=== PATIENT | male | born 1970 | race Hispanic/Latino ===

== ENCOUNTER 2017-07-29 12:00 | Observation (INO) | payer OTHER ==
[~2017-07-29] VITALS: Ht 167.6 cm; Wt 119.8 kg
[2017-07-29 08:53] VITALS: BP 123/81
[2017-07-29 10:20] LABS: BASOPHILS % (AUTO) 0.5 % (0.0-5.0); EOSINOPHILS % (AUTO) 1.5 % (0.0-8.0); LYMPHOCYTES % (AUTO) 30.8 % (21.0-51.0); MEAN CORPUSCULAR HEMOGLOBIN 30.3 pg (27.0-33.0); MEAN CORPUSCULAR HGB CONC 33.8 g/dL (32.0-36.0); MEAN CORPUSCULAR VOLUME 89.8 fL (79-99); MONOCYTES % (AUTO) 6.5 % (3.0-13.0); NEUTROPHILS % (AUTO) 60.7 % (40.0-77.0); PLATELET COUNT (AUTO) 301 K/uL (130-400); RED BLOOD CELL COUNT(AUTO) 4.68 MIL/uL (4.50-6.20); RED CELL DISTRIBUTION WIDTH 14.8 % (11.0-15.5); WHITE BLOOD COUNT (AUTO) 9.6 K/uL (4.8-10.8)
[2017-07-29 10:27] LABS: POTASSIUM 4.8 mmol/L (3.5-5.1)
[~2017-07-29 12:00] MED LIST: BACL10TA PO; GABA-531 PO; LISI10TA7 PO; MELO-106 PO; TYL3 PO
[2017-08-01] VITALS (21 sets, daily range): BP systolic 80–152; BP diastolic 35–89
[2017-08-01] MEDS: CEFAZOLIN SODIUM 1 GM VIAL IVP SCH ×2 (05:00→09:00)
[2017-08-01] MEDS ORDERED: LACTATED RINGERS 1000ML 1,000 ML IV ONE (06:18)
[2017-08-01] MEDS ORDERED: DEXAMETHASONE SOD PHOSPHATE 10MG/ML 1ML VIAL ONE ×2 (07:45→09:33)
[2017-08-01] MEDS ORDERED: LIDOCAINE PF 2% 5ML ABBOJECT ONE (07:45)
[2017-08-01] MEDS ORDERED: MIDAZOLAM HCL 1 MG/ML 2ML VIAL ONE (07:45)
[2017-08-01] MEDS ORDERED: PROPOFOL 10 MG/ML 20ML VIAL IV ONE (07:45)
[2017-08-01] MEDS ORDERED: NEOSTIGMINE 5MG/5ML SYR IV ONE ×2 (07:45→09:33)
[2017-08-01] MEDS ORDERED: GLYCOPYRROLATE 0.2 MG/ML 5 ML VIAL ONE (07:45)
[2017-08-01] MEDS ORDERED: FENTANYL CITRATE PF 50 MCG/1 ML 2ML VIAL ONE ×4 (07:46→11:45)
[2017-08-01] MEDS ORDERED: LIDOCAINE HCL 2% JELLY 5 ML ONE (07:56)
[2017-08-01] MEDS ORDERED: BUPIVACAINE/PF 0.25% 30ML VIAL IJ ONE (08:22)
[2017-08-01] MEDS ORDERED: DURAMORPH PF1 MG/ML 10ML AMP IV ONE (08:22)
[2017-08-01] MEDS ORDERED: EPINEPHRINE 1 MG/ML AMPULE ONE (08:22)
[2017-08-01] MEDS ORDERED: BACITRACIN 50,000 UNIT VIAL ONE (08:22)
[2017-08-01] MEDS ORDERED: THROMBIN-JMI 20000 UNIT KIT TP ONE (08:23)
[2017-08-01] MEDS ORDERED: SODIUM CHLORIDE 0.9% 10 ML VIAL ONE (09:24)
[2017-08-01] MEDS ORDERED: EPHEDRINE SULFATE 50 MG/ML AMPULE ONE (09:25)
[2017-08-01] MEDS ORDERED: METOCLOPRAMIDE 10 MG/2 ML VIAL ONE (09:33)
[2017-08-01] MEDS ORDERED: ROCURONIUM BROMIDE 10MG/1ML 5ML VL ONE (09:33)
[2017-08-01] MEDS ORDERED: PHENYLEPHRINE HCL 10 MG/ML 1ML VIAL IV ONE (09:33)
[2017-08-01] MEDS ORDERED: ONDANSETRON HCL MDV 20ML 2 MG/ML VIAL ONE (12:03)
[2017-08-01] MEDS ORDERED: SODIUM CHLORIDE 0.9% 10 ML VIAL IVP PRN (12:30)
[2017-08-01] MEDS ORDERED: CEFAZOLIN 3GM /D5W 100ML 100 ML IV SCH (12:30)
[2017-08-01] MEDS: DEXAMETHASONE SOD PHOSPHATE 4 MG/ML 1ML VIAL IVP SCH ×3 (12:30→23:18)
[2017-08-01] MEDS ORDERED: PROMETHAZINE HCL 25 MG/ML 1ML AMPULE IM PRN (12:30)
[2017-08-01] MEDS ORDERED: ACETAMINOPHEN-CODEINE 300/30MG TAB PO PRN (12:30)
[2017-08-01] MEDS ORDERED: MORPHINE SULFATE 2 MG/ML 1ML SYG IVP PRN (12:30)
[2017-08-01] MEDS ORDERED: CEFAZOLIN SODIUM 1 GM VIAL IVP SCH (12:45)
[2017-08-01] MEDS ORDERED: MORPHINE SULFATE 4 MG/1ML SYG ONE (14:14)
[2017-08-01] MEDS: GABAPENTIN 300 MG CAPSULE PO SCH ×3 (14:27→20:25)
[2017-08-01] MEDS: LACTATED RINGERS 1000ML 1,000 ML IV SCH (14:27)
[2017-08-01] MEDS ORDERED: DiphenhydrAMINE HCL 50 MG/ML VIAL ONE (14:39)
[2017-08-01] MEDS ORDERED: DiphenhydrAMINE HCL 50 MG/ML VIAL IV SCH (14:45)
[2017-08-01] MEDS: CEFAZOLIN 3GM /D5W 100ML 100 ML IV SCH ×2 (16:50→23:18)
[2017-08-01] MEDS: HYDROCODONE/ACETAMINOPHEN 5/325 MG TAB PO PRN (16:54)
[2017-08-01] MEDS: MELOXICAM 7.5 MG TABLET PO SCH (20:25)
[2017-08-01] MEDS ORDERED: BACLOFEN 10 MG TABLET PO SCH (21:00)
[2017-08-02] VITALS: BP 138/78
[2017-08-02] MEDS: LACTATED RINGERS 1000ML 1,000 ML IV SCH (01:47)
[2017-08-02] MEDS: HYDROCODONE/ACETAMINOPHEN 5/325 MG TAB PO PRN (03:35)
[2017-08-02 04:00] VITALS: BP 146/72
[2017-08-02] MEDS: DEXAMETHASONE SOD PHOSPHATE 4 MG/ML 1ML VIAL IVP SCH (05:01)
[2017-08-02 07:34] VITALS: BP 150/96
[2017-08-02] MEDS: GABAPENTIN 300 MG CAPSULE PO SCH (07:55)
[2017-08-02] MEDS: CEFAZOLIN 3GM /D5W 100ML 100 ML IV SCH (07:56)
[2017-08-02] MEDS: MELOXICAM 7.5 MG TABLET PO SCH (08:01)
[2017-08-02] MEDS ORDERED: LISINOPRIL 10 MG TABLET PO SCH (09:00)
== END 2017-08-02 09:45 | disposition home or self-care (01) ==
LOC: EDSTATUS 12:00 → DAHIP 08-01 05:55 → 4AH 08-01 13:32
PROVIDERS: ADMIT Neurological Surgery; ATTEND Neurological Surgery
DX: M51.06 Intervertebral disc disorders with myelopathy, lumbar region (principal); M48.061 Spinal stenosis, lumbar region without neurogenic claudication; G83.4 Cauda equina syndrome; Z79.899 Other long term (current) drug therapy; M25.78 Osteophyte, vertebrae
CPT/HCPCS: 36415; 63047; 63048; 72020; 80051; 85025; 96365; 96366; 96375; 96376 ×2; A4218; A4344; A6219; G0378 ×29; J0171; J0690 ×4; J1100 ×5; J1200; J2001; J2250; J2270; J2274; J2370; J2704; J2710 ×2; J2765; J3010 ×4; J3490 ×4; J7120 ×2